=== PATIENT | male | born 1935 | race Caucasian/White ===

== ENCOUNTER 2017-07-31 17:35 | Emergency (ER) | payer MEDICARE ==
[2013-10-09 15:52] VITALS: BMI 34.9
[~2017-07-31 17:35] MED LIST: ADVAIR HFA 45/212 GM INH; ATIVAN1 MG PO; BAYER CHEWABLE81 MG PO; COLAZAL750 MG PO; CORTENEMA100 MG/60 RC; EXFORGE HCT 101 EAC1 PO; IPRAT-ALBUT 0.5-3 ML UPD; K-TAB10 MEQ PO; LEVAQUIN500 MG PO; LIBRAX CAPSULE1 CAP PO; PREDNISONE PO; PREDNISONE10 MG PO; SYMBICORT 80-10.2 GM INH; TRIGLIDE160 MG PO; TUMS500 MG PO; TYLENOL PM1 TAB PO
== END 2017-07-31 20:08 | disposition home or self-care (01) ==
LOC: D.ER 17:35
DX: I48.91 Unspecified atrial fibrillation (principal)

== ENCOUNTER → 2017-08-15 18:44 | Outpatient (CLI) | payer MEDICARE ==
[2013-10-09 15:52] VITALS: BMI 34.9
[2017-08-15 19:30] LABS: CALCIUM 8.6 mg/dL (8.5-10.1); CARBON DIOXIDE 23.7 mmol/L (21.0-32.0); CREATININE - SERUM 3.1 mg/dL (0.6-1.3); POTASSIUM - SERUM 4.7 mmol/L (3.5-5.1)
== END | disposition home or self-care (01) ==
LOC: D.LABREF 18:44
PROVIDERS: Nurse Practitioner
DX: I10 Essential (primary) hypertension (principal)

== ENCOUNTER → 2017-09-20 14:51 | Outpatient (CLI) | payer MEDICARE ==
[2013-10-09 15:52] VITALS: BMI 34.9
[2017-09-20 18:16] LABS: ANION GAP 16.8 mmol/L (8-16); CALCIUM 8.9 mg/dL (8.5-10.1); CARBON DIOXIDE 24.7 mmol/L (21.0-32.0); CREATININE - SERUM 3.9 mg/dL (0.6-1.3); POTASSIUM - SERUM 4.5 mmol/L (3.5-5.1)
== END | disposition home or self-care (01) ==
LOC: D.LABREF 14:51
PROVIDERS: Internal Medicine
DX: J44.9 Chronic obstructive pulmonary disease, unspecified (principal); I12.9 Hypertensive chronic kidney disease with stage 1 through stage 4 chronic kidney disease, or unspecified chronic kidney disease; N18.9 Chronic kidney disease, unspecified

== ENCOUNTER → 2017-10-01 16:44 | Outpatient (CLI) | payer MEDICARE ==
[2013-10-09 15:52] VITALS: BMI 34.9
[2017-10-01 19:18] LABS: CREATININE - SERUM 3.7 mg/dL (0.6-1.3)
== END | disposition home or self-care (01) ==
LOC: D.LABREF 16:44
PROVIDERS: Family Medicine
DX: N18.3 Chronic kidney disease, stage 3 (moderate) (principal)

== ENCOUNTER → 2017-10-09 16:58 | Outpatient (CLI) | payer MEDICARE ==
[2013-10-09 15:52] VITALS: BMI 34.9
[2017-10-09 17:37] LABS: ANION GAP 16.3 mmol/L (8-16); CALCIUM 8.3 mg/dL (8.5-10.1); CARBON DIOXIDE 27.1 mmol/L (21.0-32.0); CREATININE - SERUM 3.1 mg/dL (0.6-1.3); POTASSIUM - SERUM 5.4 mmol/L (3.5-5.1)
== END | disposition home or self-care (01) ==
LOC: D.LABREF 16:58
PROVIDERS: Family Medicine
DX: I12.9 Hypertensive chronic kidney disease with stage 1 through stage 4 chronic kidney disease, or unspecified chronic kidney disease (principal); Z51.81 Encounter for therapeutic drug level monitoring; Z79.52 Long term (current) use of systemic steroids

== ENCOUNTER → 2017-10-15 20:44 | Outpatient (CLI) | payer MEDICARE ==
[2013-10-09 15:52] VITALS: BMI 34.9
[2017-10-16 00:15] LABS: ANION GAP 18.7 mmol/L (8-16); CALCIUM 8.3 mg/dL (8.5-10.1); CREATININE - SERUM 3.4 mg/dL (0.6-1.3); POTASSIUM - SERUM 4.7 mmol/L (3.5-5.1)
== END | disposition home or self-care (01) ==
LOC: D.LAB 20:44
PROVIDERS: Family Medicine
DX: N19 Unspecified kidney failure (principal)

== ENCOUNTER → 2017-10-22 20:32 | Outpatient (CLI) | payer MEDICARE ==
[2013-10-09 15:52] VITALS: BMI 34.9
[2017-10-22 21:12] LABS: ANION GAP 18.8 mmol/L (8-16); CARBON DIOXIDE 24.2 mmol/L (21.0-32.0); CREATININE - SERUM 3.9 mg/dL (0.6-1.3)
== END | disposition home or self-care (01) ==
LOC: D.LABREF 20:32
PROVIDERS: Family Medicine
DX: I12.9 Hypertensive chronic kidney disease with stage 1 through stage 4 chronic kidney disease, or unspecified chronic kidney disease (principal); N18.3 Chronic kidney disease, stage 3 (moderate)

== ENCOUNTER → 2017-10-29 16:39 | Outpatient (CLI) | payer MEDICARE ==
[2013-10-09 15:52] VITALS: BMI 34.9
[2017-10-29 16:57] LABS: ANION GAP 16.5 mmol/L (8-16); CALCIUM 8.3 mg/dL (8.5-10.1); CARBON DIOXIDE 25.2 mmol/L (21.0-32.0); CREATININE - SERUM 3.6 mg/dL (0.6-1.3); POTASSIUM - SERUM 4.7 mmol/L (3.5-5.1)
== END | disposition home or self-care (01) ==
LOC: D.LABREF 16:39
PROVIDERS: Family Medicine
DX: N19 Unspecified kidney failure (principal)

== ENCOUNTER → 2017-11-06 20:35 | Outpatient (CLI) | payer MEDICARE ==
[2013-10-09 15:52] VITALS: BMI 34.9
[2017-11-06 21:09] LABS: CALCIUM 8.2 mg/dL (8.5-10.1); CARBON DIOXIDE 24.9 mmol/L (21.0-32.0); CREATININE - SERUM 4.1 mg/dL (0.6-1.3); POTASSIUM - SERUM 4.9 mmol/L (3.5-5.1)
== END | disposition home or self-care (01) ==
LOC: D.LABREF 20:35
PROVIDERS: Family Medicine
DX: N19 Unspecified kidney failure (principal)

== ENCOUNTER → 2017-11-19 16:45 | Outpatient (CLI) | payer MEDICARE ==
[2013-10-09 15:52] VITALS: BMI 34.9
[~2017-11-19 16:45] MED LIST changes: +AVAPRO150 MG PO; +FUROSEMIDE20 MG PO; +NIFEDIPINE ER60 MG PO; +PACERONE200 MG PO; +SODIUM BICARBO325 MG PO; +TYLENOL W/CODEI1 TAB PO; +VITAMIN D31000 UNI2 PO
[2017-11-19 20:45] LABS: BASOPHILS 0 % (0-2); EOSINOPHILS 0 % (0-7); HEMATOCRIT 38.7 % (42.0-54.0); HEMOGLOBIN 12.3 g/dL (13.5-17.5); IMMATURE GRANULOCYTES 0.5 % (0-5); LYMPHOCYTES 2.5 % (15-50); MCH 33.2 pg (26.0-34.0); MCHC 31.8 g/dL (31.0-37.0); MCV 104.3 fL (80.0-100.0); MEAN PLATELET VOLUME 10.8 fL (7.4-10.4); MONOCYTES 2.2 % (2-11); NEUTROPHILS 94.8 % (40-80); RBC 3.71 10x6/uL (4.20-6.10); RDW 14.7 % (11.5-14.5); WBC 12.6 10x3/uL (4.8-10.8)
[2017-11-19 20:51] LABS: PLATELET COUNT 278 10x3/uL (130-400)
[2018-01-05 13:30] VITALS: BMI 29.5
== END | disposition home or self-care (01) ==
LOC: D.LABREF 16:45
PROVIDERS: Family Medicine
DX: I12.9 Hypertensive chronic kidney disease with stage 1 through stage 4 chronic kidney disease, or unspecified chronic kidney disease (principal); K51.90 Ulcerative colitis, unspecified, without complications

== ENCOUNTER → 2017-12-03 17:26 | Outpatient (CLI) | payer MEDICARE ==
[2013-10-09 15:52] VITALS: BMI 34.9
[2017-12-03 17:34] LABS: BASOPHILS 0 % (0-2); EOSINOPHILS 0 % (0-7); HEMATOCRIT 37.6 % (42.0-54.0); HEMOGLOBIN 12.3 g/dL (13.5-17.5); IMMATURE GRANULOCYTES 0.5 % (0-5); LYMPHOCYTES 3.1 % (15-50); MCH 33.5 pg (26.0-34.0); MCHC 32.7 g/dL (31.0-37.0); MCV 102.5 fL (80.0-100.0); MEAN PLATELET VOLUME 10.8 fL (7.4-10.4); MONOCYTES 1.4 % (2-11); PLATELET COUNT 289 10x3/uL (130-400); RBC 3.67 10x6/uL (4.20-6.10); RDW 14.1 % (11.5-14.5); WBC 9.8 10x3/uL (4.8-10.8)
[2017-12-03 18:04] LABS: ANION GAP 20.6 mmol/L (8-16); CALCIUM 7.8 mg/dL (8.5-10.1); CARBON DIOXIDE 24.4 mmol/L (21.0-32.0); CREATININE - SERUM 3.8 mg/dL (0.6-1.3)
[2018-01-05 13:30] VITALS: BMI 29.5
== END | disposition home or self-care (01) ==
LOC: D.LABREF 17:26
PROVIDERS: Family Medicine
DX: I12.9 Hypertensive chronic kidney disease with stage 1 through stage 4 chronic kidney disease, or unspecified chronic kidney disease (principal)

== ENCOUNTER → 2017-12-19 17:24 | Outpatient (CLI) | payer MEDICARE ==
[2013-10-09 15:52] VITALS: BMI 34.9
[2017-12-19 18:46] LABS: BASOPHILS 0 % (0-2); EOSINOPHILS 0 % (0-7); HEMATOCRIT 37.9 % (42.0-54.0); IMMATURE GRANULOCYTES 0.6 % (0-5); LYMPHOCYTES 1.7 % (15-50); MCH 32.8 pg (26.0-34.0); MCHC 31.7 g/dL (31.0-37.0); MCV 103.6 fL (80.0-100.0); MEAN PLATELET VOLUME 11.1 fL (7.4-10.4); MONOCYTES 3.5 % (2-11); NEUTROPHILS 94.2 % (40-80); PLATELET COUNT 235 10x3/uL (130-400); RBC 3.66 10x6/uL (4.20-6.10); WBC 8.1 10x3/uL (4.8-10.8)
[2017-12-19 18:55] LABS: ANION GAP 16.2 mmol/L (8-16); CALCIUM 7.9 mg/dL (8.5-10.1); CARBON DIOXIDE 26.7 mmol/L (21.0-32.0); CREATININE - SERUM 4.3 mg/dL (0.6-1.3); POTASSIUM - SERUM 4.9 mmol/L (3.5-5.1)
[2018-01-05 13:30] VITALS: BMI 29.5
== END | disposition home or self-care (01) ==
LOC: D.LABREF 17:24
PROVIDERS: Family Medicine
DX: I12.9 Hypertensive chronic kidney disease with stage 1 through stage 4 chronic kidney disease, or unspecified chronic kidney disease (principal); N18.9 Chronic kidney disease, unspecified; N18.3 Chronic kidney disease, stage 3 (moderate)

== ENCOUNTER → 2017-12-31 19:58 | Outpatient (CLI) | payer MEDICARE ==
[2013-10-09 15:52] VITALS: BMI 34.9
[2017-12-31 20:39] LABS: BASOPHILS 0 % (0-2); EOSINOPHILS 0 % (0-7); HEMATOCRIT 38.6 % (42.0-54.0); HEMOGLOBIN 12.3 g/dL (13.5-17.5); IMMATURE GRANULOCYTES 0.4 % (0-5); LYMPHOCYTES 4.4 % (15-50); MCH 32.6 pg (26.0-34.0); MCHC 31.9 g/dL (31.0-37.0); MCV 102.4 fL (80.0-100.0); MEAN PLATELET VOLUME 11.3 fL (7.4-10.4); MONOCYTES 2.2 % (2-11); PLATELET COUNT 256 10x3/uL (130-400); RBC 3.77 10x6/uL (4.20-6.10); RDW 13.7 % (11.5-14.5); WBC 7.2 10x3/uL (4.8-10.8)
[2017-12-31 20:52] LABS: ANION GAP 17.8 mmol/L (8-16); CALCIUM 8.1 mg/dL (8.5-10.1); CARBON DIOXIDE 23.8 mmol/L (21.0-32.0); CREATININE - SERUM 5.6 mg/dL (0.6-1.3); POTASSIUM - SERUM 4.6 mmol/L (3.5-5.1)
[2018-01-05 13:30] VITALS: BMI 29.5
== END | disposition home or self-care (01) ==
LOC: D.LABREF 19:58
PROVIDERS: Family Medicine
DX: I12.9 Hypertensive chronic kidney disease with stage 1 through stage 4 chronic kidney disease, or unspecified chronic kidney disease (principal); N18.3 Chronic kidney disease, stage 3 (moderate); I48.2 Chronic atrial fibrillation